=== PATIENT | male | born 1960 | race Caucasian/White ===

== ENCOUNTER 2023-03-14 14:18 | Outpatient (AMB) | payer BC, SELFPAY ==
--- NOTE | 2023-03-14 14:27 | HO.SPINEOV ---
Intake Intake Visit Reasons: low back pain [facility] pt Intake Note: Mr. Velasquez is here today c/o low back pain. Previous pt. from [facility]. Set Rider Required: No Assessment & Plan Assessment & Plan (1) Lumbar radiculopathy: Code(s): M54.16 - Radiculopathy, lumbar region Plan HPI: Aleksandr is a 62-year-old male who comes in today with a chief complaint of left lumbar radiculopathy. He is a patient was previously established at our [facility] practice, who comes in as a new visit / new complaint. He is s/p a left-sided L4-5 laminotomy with left L5 foraminotomy completed in September of 2021. He reports complete resolution of his left-sided lumbar radiculopathy postoperatively. He states he went roughly 1 year without any symptoms, and was very satisfied with the surgery. Unfortunately he states that 2 weeks ago he woke up and began experiencing a very similar left-sided lumbar radiculopathy with shooting pains/numbness/burning/tingling originating in his low back and radiating down his posterior buttocks wrapping around the lateral side of his leg, and terminating near his posterior/lateral ankle. He reports that he has attempted to utilize Tylenol, ibuprofen, oxycodone, prednisone all without significant symptom relief. He has tried an at home exercise regimen/stretching routine without significant symptom relief. Medical Hx: High blood pressure, hyperlipidemia, osteoarthritis, neuropathy. Current medications: Oxycodone, prednisone, metoprolol, lisinopril, aspirin, atorvastatin. Social Hx: The patient has recently stop smoking cigarettes x2 weeks. He was previously smoking 1/2 pack per day. He reports no substance use. Physical Exam: The patient has 5/5 strength in his upper and lower extremities, he does elicit pain to left-sided lower extremity use but is able to elicit full strength despite this. No sensational deficits. Reflexes are 2+ and intact. (+) left-sided straight leg raise. (-) right-sided straight leg raise. (-) Vargas's, (-) clonus. Patient is able to ambulate well but does have a slightly antalgic gait favoring the right. Imaging: The patient does not have an up-to-date lumbar MRI and has not had one completed since before his last surgery. He is agreeable to having a lumbar MRI completed here at [facility]. Plan: Anshul is a 62-year-old male who comes in today with a chief complaint of left-sided lumbar radiculopathy which starts in his low back in terminates in his ankle. He has a pertinent medical history of neuropathy, and had previous spinal surgery with our service when it was at [facility]. He had an L4-5 laminotomy with a left-sided L5 foraminotomy completed in September of last year. His new onset radicular symptoms started 2 weeks ago without inciting incident. He is now in excruciating pain, and has been started on a narcotic pain medication regimen by his primary care provider to help him tolerate the pain. His symptoms are classic for a acute herniated disc, which I suspect is near the L5-S1 level based upon the dermatomal distribution in which he describes his radiation of symptoms. I recommend that he have a lumbar MRI completed to evaluate for an acute herniated disc. We will call him to discuss his results. Total amount of time spent in this visit was 45 minutes in discussion of symptoms, previous surgical procedure review, and subsequent plan of care. Figueroa Rosario MD,PhD [facility] Coding Level of Care Code New Pt Level 4 (09594) Diagnoses Lumbar radiculopathy M54.16
== END 2023-03-14 15:15 | disposition home or self-care (01) ==
PROVIDERS: PCP Family Medicine; Visit Provider Neurological Surgery
DX: M54.16 Radiculopathy, lumbar region (principal)
CPT/HCPCS: 99204; 99214

== ENCOUNTER → 2023-03-14 14:18 | Outpatient (BNVA) | payer BC, SELFPAY | PROVIDERS: PCP Family Medicine; Visit Provider Neurological Surgery ==

== ENCOUNTER 2023-04-25 14:55 | Outpatient (AMB) | payer BC, SELFPAY ==
--- NOTE | 2023-04-25 15:35 | MHC.OFFVIS ---
Intake Intake Visit Reasons: MRI follow up Automation Design Engineer Required: No Assessment & Plan Assessment & Plan (1) Spinal stenosis of lumbar region with radiculopathy: Code(s): M48.061 - Spinal stenosis, lumbar region without neurogenic claudication; M54.16 - Radiculopathy, lumbar region Plan Dear colleague, On 04/25/2023, I saw for follow-up Aleksandr Velasquez after obtaining an MRI of the lumbar spine for severe left L5 radiculopathy. Patient states that the pain is not improving. In fact it is only getting worse. He also noticed an intubated radiating pain down the front of his right thigh. I reviewed the latest MRI with the patient and his . Shows severe lumbar degenerative disc disease L2-3, L3-4 and L4-5 but more importantly there is moderate to severe L4-5 spinal stenosis and severe right L4 foraminal stenosis. The MRI findings explain his bilateral lumbar radiculopathy. I offered him an L4-5 decompression and right L4 foraminotomy. He is scheduled for 05/17/2023. He will get clearance from his bird tender. He needs to stop aspirin 5 days prior to surgery. I spent 30 minutes in his consult for review of imaging and discussing plan of care. Tom Rosario MD, PhD Spine Fellowship Trained Neurosurgeon Director, [facility] Coding Level of Care Code Est Pt Level 3 (77923) Diagnoses Spinal stenosis of lumbar region with radiculopathy M48.061; M54.16
== END 2023-04-25 16:20 | disposition home or self-care (01) ==
PROVIDERS: PCP Family Medicine; Visit Provider Neurological Surgery
DX: M48.061 Spinal stenosis, lumbar region without neurogenic claudication (principal); M54.16 Radiculopathy, lumbar region
CPT/HCPCS: 99213

== ENCOUNTER → 2023-04-25 14:55 | Outpatient (BNVA) | payer BC, SELFPAY | PROVIDERS: PCP Family Medicine; Visit Provider Neurological Surgery ==

== ENCOUNTER 2023-05-17 07:59 | Day surgery (SDC) | payer BC, SELFPAY ==
[2023-05-09 12:08] VITALS: BP 151/80; PULSE 65; RESP 20; O2SAT 98; BMI 23.5
[2023-05-09 13:18] LABS: Hematocrit 43.5 % (42.0-52.0); Hemoglobin 14.7 g/dl (14.0-18.0); Mean Corpuscular HGB Conc 33.8 g/dl (31.0-36.0); Mean Corpuscular Hemoglobin 31.8 pg (27.0-33.0); Mean Corpuscular Volume 94.2 fL (80.0-98.0); Platelet Count 213 X10*3/uL (160-400); Red Blood Count 4.62 X10*6/uL (4.60-5.80); Red Cell Distribution Width 12.6 % (11.0-16.0); White Blood Count 7.5 X10*3/uL (4.8-10.8)
[2023-05-09 14:02] LABS: Anion Gap 13 (12-20); Blood Urea Nitrogen 16 mg/dL (9-16); Carbon Dioxide 28 mmol/L (22-29); Chloride 104 mmol/L (96-108); Creatinine Clr Calc Pharmacy 70.7; Estimated Glomerular Filt Rate > 60; Glucose Random 89 mg/dL (60-115); Potassium 4.9 mmol/L (3.3-5.1); Sodium 140 mmol/L (135-145)
--- NOTE | 2023-05-16 11:51 | P.CONAN_ITS ---
Documented by User: Charis Ayon NP 05/16/23 12:01 HPI - Anesthesia Eval Consult details Narrative: 62yo M for (Left) L4-5 Hemilaminotomy, (Right) L4 Foraminotomy Cardiac cleared. Follows [facility] cardiology for CAD, HTN PAT eval by Dr Greene 05/09/23 [facility] Active Problems Active Problems: All Active Problems (Updated 05/09/23 @ 12:04 by Angela Mccarty RN) Spinal stenosis of lumbar region with radiculopathy (Acute) Lumbar radiculopathy (Acute) Past Medical History Medical History Arthritis Heartburn Renal calculi Ischemic cardiomyopathy Sleep apnea Neuropathy Depression HTN (hypertension) Essential tremor Elevated cholesterol Cervical radiculopathy Coronary arteriosclerosis Raynaud's disease Degenerative disc disease, lumbar Surgical History Surgical History Hx of shoulder surgery History of esophagogastroduodenoscopy (EGD) H/O colonoscopy Hx of lithotripsy Hx of cardiac catheterization History of back surgery Social History Social History (Updated 05/08/23 @ 14:05 by Angela Mccarty RN) Are you a primary healthcare economics manager to a significant other at home: No Do you presently have visiting nurse or other home services: No Patient Tobacco Use Status: Current someday Tobacco user Tobacco use type: Cigarette Cigarettes Per Day: 4 Years Smoked: 45 Use of substances other than those prescribed or required for medical reasons: Yes Substance Use Frequency: Occasionally Have you been hit, kicked, punched, or otherwise hurt by someone within the past year? If so, by whom?: No Are you DNR?: No Advance Directives: No Advance Directives Information Provided: Yes Advance Directives on File: No Recently lost weight without trying: No Eating poorly because of decreased appetite: No Nutrition Risks: No Nutritional Risk Poor oral hygiene: No (upper right molar-cracked) Meds Allergies Allergy/AdvReac Type Severity Reaction Status Date / Time No Known Allergies Allergy Verified 05/17/23 08:12 Home Medications Medication Instructions Recorded Confirmed Last Taken Type aspirin 325 mg tablet 325 mg PO BEDTIME 05/08/23 05/17/23 05/12/23 History atorvastatin 40 mg tablet 40 mg PO BEDTIME 05/08/23 05/17/23 05/16/23 History lisinopril 10 mg tablet 10 mg PO QAM 05/08/23 05/17/23 05/16/23 History metoprolol succinate 100 mg 100 mg PO BEDTIME 05/08/23 05/17/23 05/16/23 History tablet,extended release 24 hr multivitamin 1 tab PO QAM 05/08/23 05/17/23 05/16/23 History nitroglycerin 0.4 mg sublingual 0.4 mg sublingual Q5M PRN Chest 05/08/23 05/08/23 Unknown History tablet (Nitrostat) Pain lorazepam 1 mg tablet 1 mg PO TID PRN Anxiety 05/09/23 05/17/23 05/17/23 History mirtazapine 30 mg tablet 30 mg PO BEDTIME 05/09/23 05/17/23 05/16/23 History Exam Height,Weight and Vital Signs: Height 5 ft 9 in Weight 72.121 kg Last Vital Signs Pulse 65 05/09/23 12:08 Resp 20 05/09/23 12:08 BP 151/80 H 05/09/23 12:08 Pulse Ox 98 05/09/23 12:08 O2 Del Method Room Air 05/09/23 12:08 Pertinent Lab Results Pertinent Lab Results: Laboratory Tests 05/09/23 12:45 WBC 7.5 RBC 4.62 Hgb 14.7 Hct 43.5 MCV 94.2 MCH 31.8 MCHC 33.8 RDW 12.6 Plt Count 213 MPV 10.0 Absolute Nucleated RBC 0.000 Nucleated RBC % (auto) 0.0 Sodium 140 Potassium 4.9 Chloride 104 Carbon Dioxide 28 Anion Gap 13 BUN 16 Creatinine 1.11 Estim Creat Clear Calc 70.7 Estimated GFR > 60 Random Glucose 89 Calcium 10.0 Narrative Narrative: EKG 04/2023 SB with lateral T wave inversions. No change from prior Per 04/2023 Cardiology office visit note: Positive exercise stress test that led to coronary angiography in Feb 2019. MECHANICAL DEVELOPER PROVER of the RCA with [id number] collateral flow, 60% stenosis in the ramus. No PCI. Medically managed with ischemic cardiomyopathy LVEF 35-45% improved to 55% on medical therapy Assessment and Plan Assessment Anesthesia Assessment: Chart Reviewed Documented by User: Baldomero Yeung MD 05/17/23 09:29 [facility] Past Medical History Medical History Arthritis Heartburn Renal calculi Ischemic cardiomyopathy Sleep apnea Neuropathy Depression HTN (hypertension) Essential tremor Elevated cholesterol Cervical radiculopathy Coronary arteriosclerosis Raynaud's disease Degenerative disc disease, lumbar Family History Family history of problems with anesthesia: No Surgical History Surgical History Hx of shoulder surgery History of esophagogastroduodenoscopy (EGD) H/O colonoscopy Hx of lithotripsy Hx of cardiac catheterization History of back surgery History of Problems with Anesthesia: No Social History Social History (Updated 05/08/23 @ 14:05 by Angela Mccarty RN) Are you a primary healthcare economics manager to a significant other at home: No Do you presently have visiting nurse or other home services: No Patient Tobacco Use Status: Current someday Tobacco user Tobacco use type: Cigarette Cigarettes Per Day: 4 Years Smoked: 45 Use of substances other than those prescribed or required for medical reasons: Yes Substance Use Frequency: Occasionally Have you been hit, kicked, punched, or otherwise hurt by someone within the past year? If so, by whom?: No Are you DNR?: No Advance Directives: No Advance Directives Information Provided: Yes Advance Directives on File: No Recently lost weight without trying: No Eating poorly because of decreased appetite: No Nutrition Risks: No Nutritional Risk Poor oral hygiene: No (upper right molar-cracked) Meds Allergies Allergy/AdvReac Type Severity Reaction Status Date / Time No Known Allergies Allergy Verified 05/17/23 08:12 Home Medications Medication Instructions Recorded Confirmed Last Taken Type aspirin 325 mg tablet 325 mg PO BEDTIME 05/08/23 05/17/23 05/12/23 History atorvastatin 40 mg tablet 40 mg PO BEDTIME 05/08/23 05/17/23 05/16/23 History lisinopril 10 mg tablet 10 mg PO QAM 05/08/23 05/17/23 05/16/23 History metoprolol succinate 100 mg 100 mg PO BEDTIME 05/08/23 05/17/23 05/16/23 History tablet,extended release 24 hr multivitamin 1 tab PO QAM 05/08/23 05/17/23 05/16/23 History nitroglycerin 0.4 mg sublingual 0.4 mg sublingual Q5M PRN Chest 05/08/23 05/08/23 Unknown History tablet (Nitrostat) Pain lorazepam 1 mg tablet 1 mg PO TID PRN Anxiety 05/09/23 05/17/23 05/17/23 History mirtazapine 30 mg tablet 30 mg PO BEDTIME 05/09/23 05/17/23 05/16/23 History Exam Airway Mallampati Class: II TM Dist: >3cm Neck ROM: Full Loose/Missing/Broken Teeth: No Heart: rrr Lungs: cta b\l Assessment and Plan Assessment Anesthesia Assessment: Anesthesia Plan Discussed and Smoking Cess. Discussed Final Anesthetic Review Family History of Problems with Anesthesia: No History of Problems with Anesthesia: No NPO: Yes ASA Class: III Final Preanesthetic Review: No Changes in Pt Med Stat, Consent Obtained/Reviewed and Anes Risks/Benef Reviewed Patient Risk: Intermediate Procedure Risk: Intermediate Anesthetic Plan Anesthetic Plan: GA Disposition: Standard PACU
--- NOTE | ~2023-05-17 | FL_ITS ---
CLINICAL INDICATION: L4-5 hemilaminotomy (left), L4 foraminotomy (R). FINDINGS: Technical assistance and equipment were provided by the Department of Radiology during intraoperative fluoroscopy for L4-5 hemilaminotomy (left), L4 foraminotomy (R). 1, limited fluoroscopic spot image is submitted. A radiologist was not present during the procedure. The image demonstrates retractor and probe posterior to L5. Moderate multilevel disc degenerative changes. Aortoiliac calcification. The image is available for review on PACS. TOTAL FLUOROSCOPY TIME: 0 minutes. DOSE AREA PRODUCT: 0.69 Gy-cm2 (kumar-centimeter squared) FL/FL guidance in OR IMPRESSION: Technical assistance and equipment provided by the Department of Radiology during intraoperative fluoroscopy, as above. Please see operative report for further details.
--- NOTE | 2023-05-17 07:32 | P.HPSUR_ITS ---
Pre-Procedural Eval Section A - 24 Hr Update-Section A only Date of Service: 05/17/23 The patient is an INPATIENT: No Changes since office visit: No Cold of Flu in the past 2 weeks, No New Medical Problems, No Changes in Medication and No Patient answered all questions The patient has been examined within 24 hours of the surgical procedure. The History & Physical has been completed within 30 days and I have reviewed it.: No Section B - Complete if H&P > 30 days Chief Complaint: Spinal stenosis, lumbar region without neurogenic Allergies: Allergies Allergy/AdvReac Type Severity Reaction Status Date / Time No Known Allergies Allergy Verified 05/08/23 11:02 Review of Systems Sugical H&P ROS: Negative: Constitution, Cardiovascular, Respiratory, Neurological, Psychiatric, Hem-Onc, Allergic/Immunologic, Gastrointestinal, Genitourinary, Musculoskeletal, Integumentary, Endocrine and Eyes/Ears/Nose/Thro at Exam Surgical H&P Exam: Not Evaluated: HEENT, Not Evaluated: Heart, Not Evaluated: Lungs, Not Evaluated: Extremities, Not Evaluated: Abdomen, Not Evaluated: Skin and Not Evaluated: Neurological Plan Diagnosis/Plan: Unchanged bilat L4-5 decompression with right L4 foraminotomy Time Spent With Patient Time: Total time managing care of this patient today _5___ minutes.
[2023-05-17] MEDS: Lactated Ringers 1,000 ML 50 ML IVCONT (08:22)
[2023-05-17] MEDS: methocarbamoL 750 MG TABLET PO (08:22)
[2023-05-17] MEDS: Gabapentin 300 MG CAPSULE PO (08:23)
[2023-05-17 08:36] VITALS: BP 131/59; PULSE 54; RESP 16; TEMP 36.1; O2SAT 97; BMI 23.6
--- NOTE | 2023-05-17 11:30 | P.DS_ITS ---
DS: Providers Provider Date of Service: 05/17/23 Date of discharge: 05/17/23 Primary care physician: Aleksandr Bates MD Admitting clinician: Tom Rosario DS: Diagnosis Discharge Diagnosis (1) Spinal stenosis of lumbar region with radiculopathy: Status: Acute DS: Summary Time Attestation Discharge coordination time: Less than 30 minutes Quality: Safe Use of Opioids Does Pt have an Active Cancer Diagnosis on the Problem List?: No Quality: Stroke Does the patient have a stroke diagnosis?: No Physical Exam Vital Signs: Vital Signs: Last Vital Signs Temp 97.0 F 05/17/23 08:36 Pulse 54 05/17/23 08:36 Resp 16 05/17/23 08:36 BP 131/59 L 05/17/23 08:36 Pulse Ox 97 05/17/23 08:36 O2 Del Method Room Air 05/17/23 08:36 BMI result Body Mass Index 23.6 Discharge Plan Discharge Patient Disposition: Home, Self-Care Referrals: Aleksandr Bates MD [Primary Care Provider] - 1 Week Discharge Medications: New docusate sodium [Colace] 100 mg capsule 100 mg PO BID Qty: 20 0RF oxycodone 5 mg tablet 5 mg PO Q4H PRN (Reason: pain) Qty: 20 0RF Rx Instructions: Partial Fill upon patient request. Continued atorvastatin 40 mg tablet 40 mg PO BEDTIME metoprolol succinate 100 mg tablet extended release 24 hr 100 mg PO BEDTIME multivitamin Tablet 1 tab PO QAM lisinopril 10 mg Tablet 10 mg PO QAM nitroglycerin [Nitrostat] 0.4 mg Tablet, Sublingual 0.4 mg SUBLINGUAL Q5M PRN (Reason: Chest Pain) Rx Instructions: do not exceed 3 doses per episode mirtazapine 30 mg tablet 30 mg PO BEDTIME lorazepam 1 mg tablet 1 mg PO TID PRN (Reason: Anxiety) Held aspirin 325 mg Tablet 325 mg PO BEDTIME Hold Instructions: Resume on 05/24/23. resume one week after surgery Discharge Orders: Discharge Order (Routine); Ordered 05/17/23 Ordered By: Jung Dumont Diet: Advance to usual diet Activity on Discharge: As tolerated Activity Restrictions/Additional Instructions: After your spinal surgery we ask you to observe the following restrictions/guidelines: You can resume your aspirin 1 week from the date of surgery Activity: It is normal to feel some discomfort as you increase your activity, but that will improve with time. We ask you avoid heavy lifting or acitivities that cause pain. As a general rule, 8lbs is a safe limit for lifting right after surgery. Walk as much as you feel comfortable but not to exhaustion. You will feel extra tired the first few days after surgery. Stay well hydrated. It is OK to walk up and down stairs You may return to driving when you are off narcotics (such as vicodin, oxycodone , dilaudid, etc), and you are back to normal functional capacity. If you have any concerns please check with office before driving. Return to work is specific to each patient and each surgery, so please speak with your doctor/PA at first follow up. Please bring paperwork such as FMLA at that time if you need it filled out. Medications: For optimum pain control, it is best to start with a combination of 500 mg of Tylenol every 4 hours with 600 mg of Motrin every 8 hours, and use narcotics as needed in between for breakthrough pain. We will give you a short supply of narcotics after surgery (usually one weeks worth). If you need more please call the office but do not use more than prescribed. You will need to give our office 48 hours notice if you need narcotics refilled and we do not fill narcotics on weekends or evenings. If you are on a narcotic, it is a good idea to take a stool softener such as colace or senna to avoid constipation If you take blood thinner such as aspirin, Plavix, Coumadin, Effient, Eliquis etc for conditions such as Afib, DVT, Pulmonary embolus, coronary disease, stents etc please speak with your surgeon about specific details as to when you can resume these medications. You can resume NSAIDs on post op day 1 (eg: Motrin, Naproxen, etc). Follow up: Please call the office, , after surgery to arrange a 3 week follow up for wound check. Wound Care: You may remove your dressing on the first day after surgery. ?You may ?leave open to air. Please do not remove the steri strips underneath. they will fall off on their own in one week. IT IS NORMAL FOR THE WOUND TO OOZE OR BE BLOODY FOR A FEW DAYS AFTER SURGERY. ?IF THIS HAPPENS JUST PLACE NEW DRESSING OVER IT TO AVOID STAINING CLOTHES. You may shower on post op day # 1 We ask that you do not let the water soak the wound. If it does get wet, just towel dry lightly. Please do not scrub your incision or place any type of chemical/ointment on the wound. No tub baths, pools or jacuzzis for one month. If you have any leaking or redness from your wound, or fevers, please call office
[2023-05-17 11:45] VITALS: BP 157/63; PULSE 86; RESP 19; TEMP 36.9; O2SAT 100
[2023-05-17 11:50] VITALS: BP 136/63; PULSE 67; RESP 16; O2SAT 100
[2023-05-17 11:55] VITALS: BP 143/64; PULSE 63; RESP 18; O2SAT 100
[2023-05-17 12:00] VITALS: BP 151/77; PULSE 75; RESP 16; O2SAT 96
[2023-05-17 12:15] VITALS: BP 157/97; PULSE 72; RESP 16; TEMP 36.6; O2SAT 96
--- NOTE | 2023-05-17 12:35 | W.PM.OPN ---
Operative Note Operative Note Date of Service: 05/17/23 Narrative: Preoperative Diagnosis: L4-5 spinal stenosis/lateral recess stenosis/right L4 neural foraminal stenosis Operation: L4-5 Laminotomy, Partial facetectomy and right L4 foraminotomy with use of microscope Consent Informed Consent was obtained for this operation. I have explained the nature, purpose and benefits of the operation. I have discussed the risks and benefit of the operation including possible complications or adverse events with patient/family. Alternative(s) were discussed with the patient with their relative benefits and risks as well as the consequences of not accepting the operation were included in obtaining consent. Surgeon: KENNETH RUIZ MD, PHD Procedure Assisted By: Jung Mazariegos Description of Procedure This patient previously underwent an L3-4 decompression in another institution. I performed a left-sided L4-5 laminotomy in the past. Patient continues to complain of neurogenic claudication bilaterally. MRI shows ongoing stenosis at L4-5 and severe right L4 foraminal stenosis. MRI also shows a mild lumbar degenerative scoliosis. The patient was offered a decompression. The procedure complications were explained. The patient was consented. The patient was brought to the operating room and endotracheally intubated. The patient was turned in prone position on the Danial frame. Prep and drape was done followed by timeout. The Physician assistant to the director provided access. A mid lumbar incision was made followed by release of the paravertebral muscle on the right side to expose the L4 and L5 lamina and facet joints. An intraoperative x-ray was obtained to confirm the correct level. The microscope was brought in. I took over the procedure. The high-speed drill was used to do a L4 laminotomy. The flavum ligament was opened and the L4 nerve root was identified at the medial part of the L4 pedicle. Partial facetectomy was done with a foraminotomy Kerclaudia and the foraminotomy was completed. A long nerve hook could easily pass over the nerve root as a sign of adequate decompression. Then attention was turned to the L4-5 decompression. For that the cauda part of the L4 lamina was removed and the flavum ligament was resected. The underlying dura became visible. There was some lateral recess stenosis on the right side but overall there was no impressive stenosis. I did find 1 instability of the right L4-5 facet joint and I would not be surprised if this patient will require a fusion in the near future. The microscope was removed. Hemostasis was done. The physician assistant to the director close the Incision in 2 layers. Steri-Strips were used to approximate incision. An OpSite with Tegaderm was used to cover the incision. All sponge needle counts were correct. Patient was extubated and transported in stable is to recovery room. Anesthesia: General Estimated Blood Loss (ml): 20 Complications: None Duration of Surgery: Under 60 Minutes Postoperative Plan: Discharge to home
--- NOTE | 2023-05-17 13:07 | PC.NURSE ---
patient and family member verbalized understanding of all discharge instructions. aware of when to resume aspirin. aware to olive picker prescriptions as ordered.
== END 2023-05-17 12:52 | disposition home or self-care (01) ==
PROVIDERS: Anesthesiology; PCP Family Medicine; Visit Provider Neurological Surgery
PROC: (CPT 63047; principal; 2023-05-17 11:10)
DX: M48.061 Spinal stenosis, lumbar region without neurogenic claudication (principal); M54.16 Radiculopathy, lumbar region; I10 Essential (primary) hypertension; E78.00 Pure hypercholesterolemia, unspecified; I73.00 Raynaud's syndrome without gangrene; Z79.02 Long term (current) use of antithrombotics/antiplatelets; Z79.82 Long term (current) use of aspirin; Z79.899 Other long term (current) drug therapy
CPT/HCPCS: 63047; 36415; 80048; 85027; J0131; J0690; J1596; J1885; J2250; J2704; J3010; Q4100

== ENCOUNTER → 2023-05-17 07:59 | Outpatient (BNV) | payer BC, SELFPAY | PROVIDERS: PCP Family Medicine; Visit Provider Physician Assistant | DX: M48.061 Spinal stenosis, lumbar region without neurogenic claudication (principal); M54.16 Radiculopathy, lumbar region | CPT/HCPCS: 63047; 63267; 99499 ==

== ENCOUNTER 2023-06-07 08:53 | Outpatient (AMB) | payer BC, SELFPAY ==
--- NOTE | 2023-06-07 09:03 | A.SPINEOV_ITS ---
Intake Intake Visit Reasons: 1st post op Intake Note: Mr. Velasquez is here today for 1st post op Organic Preparation Technician Required: No Allergies No Known Allergies Allergy (Verified 05/17/23 08:12) Assessment & Plan Assessment & Plan (1) S/P spinal surgery: Code(s): Z98.890 - Other specified postprocedural states Plan Procedure: L4-5 Laminotomy, Partial facetectomy and right L4 foraminotomy Aleksandr comes in today for his 1st postoperative visit. He reports he is satisfied with the surgery and has been having waxing/waning relief from his pain. He states some days he has return of symptoms with radiculopathy down his leg and other days he has almost complete relief. We discussed how this is like ly related to postoperative inflammation and he was encouraged that this should continue to reduce as he heals from his surgery. He states that he is able to ambulate around his house well, completes his ADLs, and is able to walk up a flight of stairs to use his bathroom whenever needed. No new neurological deficits. Sensation grossly intact. Patient is able to ambulate well, rises from a seated position without difficulty. Incision sites are closed, well healing, with no signs of drainage. We will follow-up with the patient in 6 weeks for his 2nd postoperative visit. I refilled his oxycodone for the last time during this visit. Figueroa Rosario MD,PhD [facility] Medications: Changed From oxycodone Partial Fill upon patient request. 5 mg PO Q8H PRN 14 tabs 0RF severe pain ( scale score 7-10) To oxycodone Partial Fill upon patient request. 5 mg PO BID PRN 10 tabs 0RF severe pain (scale score 7-10) Coding Level of Care Code Global (17722) Diagnoses S/P spinal surgery Z98.890
== END 2023-06-07 09:09 | disposition home or self-care (01) ==
PROVIDERS: PCP Family Medicine; Visit Provider Physician Assistant
DX: Z98.890 Other specified postprocedural states (principal)
CPT/HCPCS: 99024

== ENCOUNTER → 2023-06-07 08:53 | Outpatient (BNVA) | payer BC, SELFPAY | PROVIDERS: PCP Family Medicine; Visit Provider Physician Assistant ==

== ENCOUNTER 2023-07-19 09:00 | Outpatient (AMB) | payer OTHER, SELFPAY ==
--- NOTE | 2023-07-19 09:06 | HO.SPINEOV ---
Intake Intake Visit Reasons: 2nd post op Intake Note: Mr. Velasquez is here today for 2nd post-op. 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 He reports good relief of his R thigh pain for the first few weeks after surgery, but has most recently in the last 2 weeks had severe recurrent left-sided radicular pain. He has had 2 previous surgeries completed by our service, the 1st of which was an L4-5 left-sided decompression completed at [facility] in 2021, and more recently he had a L4-5 decompression and right L4 foraminotomy for a radicular pain that shot into his R thigh. When describing the pain he is experiencing today he runs his hand over his anterior thigh and down his lateral calf on the left. He states that this is a very similar pain that he had prior to the surgery completed at [facility] in 2021. He is concerned that the symptoms have recurred, and inquired about potential next steps regarding surgical interventions in order to address this issue. After reviewing Dr. Rosario schedule it appears that he has an opening next Sunday at 14:00. I had Anshul placed in the slot, and encouraged him to discuss his current symptoms with Dr. Rosario. Aleksandr reports that he and Dr. Rosario had previously discussed the possibility of lumbar fusion as a next step to more permanently address his recurrent lumbar radiculopathy. Figueroa Rosario MD,PhD [facility] Coding Level of Care Code Global (17105) Diagnoses Lumbar radiculopathy M54.16
== END 2023-07-19 09:30 | disposition home or self-care (01) ==
PROVIDERS: PCP Family Medicine; Visit Provider Physician Assistant
DX: M54.16 Radiculopathy, lumbar region (principal)
CPT/HCPCS: 99024

== ENCOUNTER → 2023-07-19 09:00 | Outpatient (BNVA) | payer OTHER, SELFPAY | PROVIDERS: PCP Family Medicine; Visit Provider Physician Assistant ==

== ENCOUNTER 2023-07-25 13:54 | Outpatient (AMB) | payer MEDICAID, SELFPAY ==
--- NOTE | 2023-07-25 14:09 | A.SPINEOV_ITS ---
Intake Intake Visit Reasons: Discuss Sx Intake Note: Mr. 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 He had bilateral L5 foraminotomies done but unfortunately the symptoms keep returning. In the past I had warned the patient that he may need an L4-5 fusion for a definitive treatment. I discussed the oblique lumbar interbody fusion with the patient today. I described the procedure, complications expected postoperative course. I will call the patient tomorrow after review of his films for a definitive plan. I spent 10 minutes in this consult. Tom Rosario MD, PhD [facility] Trained Neurosurgeon Director, [facility] Coding Level of Care Code Est Pt Level 2 (09022) Diagnoses Spinal stenosis of lumbar region with radiculopathy M48.061; M54.16
== END 2023-07-25 15:17 | disposition home or self-care (01) ==
PROVIDERS: PCP Family Medicine; Visit Provider Neurological Surgery
DX: M48.061 Spinal stenosis, lumbar region without neurogenic claudication (principal); M54.16 Radiculopathy, lumbar region
CPT/HCPCS: 99024

== ENCOUNTER → 2023-07-25 13:54 | Outpatient (BNVA) | payer MEDICAID, SELFPAY | PROVIDERS: PCP Family Medicine; Visit Provider Neurological Surgery | DX: M48.061 Spinal stenosis, lumbar region without neurogenic claudication (principal); M54.16 Radiculopathy, lumbar region | CPT/HCPCS: 99212 ==